=== PATIENT | female | born 1985 | race Caucasian/White ===

== ENCOUNTER 2024-06-15 10:35 | Outpatient (OUT) | payer OTHER, SELFPAY ==
[2024-06-15 11:17] LABS: Estimated Average Glucose 117 mg/dL; Glycohemoglobin A1C 5.7 % (4.5-6.2)
[2024-06-15 11:27] LABS: Basophils Percent Auto 0.3 % (0.2-2.0); Eosinophils Absolute Auto 0.4 10^3/uL (0.0-0.7); Eosinophils Percent Auto 4.4 % (0.9-7.0); Immature Granulocytes Abs Auto 0.03 10^3/uL (0.00-0.03); Immature Granulocytes Pct Auto 0.3 % (0.0-0.5); Lymphocytes Absolute Auto 1.9 10^3/uL (1.2-3.8); Lymphocytes Percent Auto 19.2 % (20.5-60.0); Mean Corpuscular HGB Conc 31.8 g/dL (29.9-35.2); Mean Corpuscular Hemoglobin 27.1 pg (26.7-34.0); Mean Corpuscular Volume 85.3 fL (81.0-99.0); Mean Platelet Volume 9.6 fL (9.5-13.5); Monocytes Absolute Auto 0.4 10^3/uL (0.3-0.8); Monocytes Percent Auto 4.1 % (1.7-12.0); Neutrophils Percent Auto 71.7 % (43.0-75.0); Platelet Count 442 10^3/uL (150-450); Red Blood Count 5.16 10^6/uL (4.20-5.40); Red Cell Distribution Width 13.9 % (11.0-15.0); White Blood Count 9.7 10^3/uL (4.0-11.0)
[2024-06-15 11:48] LABS: Erythrocyte Sedimentation Rate 75 mm/hr (<=20)
[2024-06-15 13:08] LABS: Alanine Aminotransferase 30 U/L (14-59); Albumin Globulin Ratio 0.9; Albumin Level 3.7 g/dL (3.4-5.0); Alkaline Phosphatase 75 U/L (46-116); Anion Gap 11.1; Aspartate Amino Transferase 20 U/L (15-37); BUN Creatinine Ratio 8.4; Bilirubin Direct 0.1 mg/dL (0.0-0.2); Bilirubin Total 0.5 mg/dL (0.2-1.0); C Reactive Protein 0.93 mg/dL (<=0.50); Calcium 8.9 mg/dL (8.5-10.1); Carbon Dioxide 28.9 mmol/L (21.0-32.0); Chloride 101 mmol/L (98-107); Chol HDL Ratio 4.6; Cholesterol 193 mg/dL (<=200); Estimated GFR (African America >60 (>=60); Estimated GFR (Non-African Ame >60 (>=60); Globulin 3.9 g/dL; Glucose 93 mg/dL (74-106); HDL Cholesterol 42 mg/dL (40-60); LDL Cholesterol Calculated 126.4 mg/dL; Sodium 137 mmol/L (136-145); Thyroid Stimulating Hormone 0.883 uIU/mL (0.358-3.740); Total Protein 7.6 g/dL (6.4-8.2); Triglycerides 123 mg/dL (<=150); VLDL CHOLESTEROL 24.6 mg/dL
[2024-06-16 06:10] LABS: Rheumatoid Factor (RF) 17.3 IU/mL (<14.0)
[2024-06-18 12:08] LABS: Antinuclear Antibodies, IFA Negative (.)
== END 2024-06-15 10:36 | disposition home or self-care (01) ==
PROVIDERS: PCP Family Medicine; Visit Provider Family Medicine
DX: Z00.00 Encounter for general adult medical examination without abnormal findings (principal); M25.50 Pain in unspecified joint
CPT/HCPCS: 36415; 80048; 80061; 80076; 83036; 84443; 85025; 85652; 86038; 86140; 86431

== ENCOUNTER 2024-08-10 09:09 | Outpatient (OUT) | payer OTHER, SELFPAY ==
--- NOTE | 2024-08-10 | PCN_ITS ---
CARDIAC STRESS TEST Requesting Physician: Gwendolyn Conrad M.D. Procedure Date: 08/10/2024 TREADMILL STRESS TEST INDICATION FOR THE PROCEDURE: Dyspnea on exertion. Patient?s resting heart 66 beats per minute, resting blood pressure 112/78 mm/Hg. Peak heart rate 171 beats per minute, which represents 95% of age predicted maximum heart rate; peak blood pressure 138/68 mm/Hg. Resting EKG shows normal sinus rhythm with first degree AV block, heart rate 69 beats per minute, otherwise normal EKG. Patient exercised according to standard Jovani protocol for a total of 3 minutes and 56 seconds, achieving max METS of 6.8. Exercise was terminated secondary to achievement of target heart rate and shortness of breath. Patient did not experience any chest, neck, jaw or arm discomfort throughout the test. EKG during exercise, at peak exercise, and during recovery phase did not show any T or ST changes or significant arrhythmias. CONCLUSIONS/COMMENTS: 1. Maximum stress test. 2. Reduced exercise tolerance. 3. Appropriate heart rate and blood pressure response to exercise. 4. This stress test is negative for exercise induced ischemic symptoms, EKG changes or arrhythmias. MTDD
--- OUTSIDE RECORDS SUMMARY | 2024-08-10 09:19 | XMS_ITS | CCD ---
Author Organization [facility] Care Team Providers Care Dry Plasterer Helper Name Role Phone Naa Em Unavailable Unavailable NADERER, DR KAI Obrien Primary Care Unavailable JACKELINE THOMAS Attending Unavailable JACKELINE THOMAS Consulting Unavailable JACKELINE THOMAS Admitting Unavailable DO Aamir Howe Attending Provider MD Kai Chavez Primary Care Provider KAI CHAVEZ Attending Unavailable NADERER, KAI Attending Unavailable NADERER, KAI Referring Unavailable NADERER, KAI Primary Care Unavailable NADERER, KAI Referring Unavailable NADERER, KAI Primary Care Unavailable NADERER, KAI Referring Unavailable NADERER, KAI Primary Care Unavailable NADERER, KAI Referring Unavailable NADERER, KAI Primary Care Unavailable NADERER, KAI Referring Unavailable NADERER, KAI Primary Care Unavailable NADERER, KAI Primary Care Unavailable WILD KILGORE Attending Unavailable YOUNG, JOSH Attending Unavailable HECTOR, JOSH Referring Unavailable NADERER, KAI Primary Care Unavailable REGINA ADAIR Attending Unavailable REGINA ADAIR Attending Unavailable Allergies Allergy Classification Reported Allergen(s) Allergy Type Date of Onset Reaction(s) Facility Levamisole (1 source) Levamisole Drug Allergy 07-16-2015 [facility] Repository (2 sources) acetaZOLAMIDE; Translations: [ACETAZOLAMIDE] Drug Allergy 09-27-2017 [facility] Repository (2 sources) Promethazine; Translations: [PROMETHAZINE] Drug Allergy 11-02-2016 [facility] Repository Problems Active Problems Problem Classification Problem Date Documented Date Episodic/Chronic Abdominal pain (1 source) Abdominal pain Onset: 07-02-2024 Episodic Esophageal disorders (1 source) Gastro-esophageal reflux disease without esophagitis; Translations: [Gastro-esophageal reflux disease without esophagitis] Onset: 07-02-2024 Chronic Heart valve disorders (1 source) Cardiac murmur, unspecified; Translations: [Cardiac murmur, unspecified] Onset: 04-04-2024 Episodic Nonspecific chest pain (4 sources) Other chest pain; Translations: [Chest pain, unspecified] Onset: 06-15-2024 Episodic Other circulatory disease (2 sources) Postural orthostatic tachycardia syndrome ; Translations: [Postural orthostatic tachycardia syndrome (POTS)] Onset: 08-06-2024 Episodic Other lower respiratory disease (6 sources) Other forms of dyspnea; Translations: [OTHER FORMS OF DYSPNEA] Onset: 04-27-2021 Episodic Other nervous system disorders (1 source) Other chronic pain; Translations: [Other chronic pain] Onset: 03-23-2024 Chronic Spondylosis; intervertebral disc disorders; other back problems (1 source) Spondylosis without myelopathy or radiculopathy, lumbosacral region; Translations: [Spondylosis without myelopathy or radiculopathy, lumbosacral region] Onset: 04-18-2017 Chronic Unclassified (1 source) [place] ACHE Onset: 07-02-2024 Unclassified (2 sources) Supraventricular tachycardia, unspecified; Translations: [Supraventricular tachycardia, unspecified] Onset: 03-23-2024 Past or Other Problems Problem Classification Problem Date Documented Date Episodic/Chronic Cardiac dysrhythmias (1 source) Palpitations; Translations: [Palpitations] Onset: 03-23-2024 Episodic Other injuries and conditions due to external causes (1 source) History of falling; Translations: [History of falling] Onset: 03-01-2024 Episodic Other non-traumatic joint disorders (1 source) Pain in right knee; Translations: [Pain in right knee] Onset: 03-23-2024 Episodic Other non-traumatic joint disorders (1 source) Pain in unspecified knee; Translations: [Pain in unspecified knee] Onset: 03-01-2024 Episodic Unclassified (1 source) Supraventricular tachycardia, unspecified; Translations: [Supraventricular tachycardia, unspecified] Onset: 08-06-2024 Results Test Name Value Interpretation Reference Range Facility Office Visiton 08-06-2024 Follow-up visit [id number] Ida Argueta 1985 F Date Provider Department Center 08/06/2024 3848REGINA ADAIR [facility] Family History Problem Relation Age of Onset Supraventricular tachycardia Other Family Status - Relation Status Age at Other Level of Service:18475 [place] OFFICE/OUTPATIENT ESTABLISHED LOW MDM 20 MIN Normal [facility] CBC AND AUTO DIFFon 07-02-20 24 ABSOLUTE BASOPHIL 0.1 X10E9/L Normal 0.0-0.2 [facility] Comment on above: Performed By: #### C NARDA JULES, 3040-01, #### [facility] ([id number]) [address] [place] [address] 77321 ABSOLUTE NEUTROPHIL 5.7 X10E9/L Normal 1.5-6.6 [facility] Comment on above: Performed By: #### C JORGE A CMP, 3040-01, #### [facility] ([id number]) [address] [place] [address] 70957 Basophils/100 WBC (Bld) 0.6 % Normal [facility] Comment on above: Performed By: #### Rojelio JULES CMP, 3040-01, 72999-2 #### [facility] ([id number]) [address] [place] [address] 99667 Eosinophils (Bld) [#/Vol] 0.4 10*3/uL Normal 0.0-0.4 [facility] Comment on above: Performed By: #### Rojelio JULES CMP, 3040-01, #### [facility] ([id number]) [address] [place] [address] 89530 Eosinophils/100 WBC (Bld) 4.6 % Normal [facility] Comment on above: Performed By: #### Rojelio JULES CMP, 3040-01, #### [facility] ([id number]) [address] [place] [address] 81089 Erythrocyte distribution width (RBC) [Ratio] 14.3 % Normal 11.5-15.0 [facility] Comment on above: Performed By: #### C NARDA JULES, 3040-01, #### [facility] ([id number]) [address] [place] [address] 03937 Hematocrit (Bld) [Volume fraction] 39.8 % Normal 35-47 [facility] Comment on above: Performed By: #### Rojelio JULES [facility], 3040-01, #### [facility] ([id number]) [address] [place] [address] 14586 Hemoglobin (Bld) [Mass/Vol] 13.4 g/dL Normal 11.7-15.5 [facility] Comment on above: Performed By: #### Rojelio JULES CMP, 3040-01, #### [facility] ([id number]) [address] [place] [address] 96564 Lymphocytes (Bld) [#/Vol] 2.2 10*3/uL Normal 1.0-3.5 [facility] Comment on above: Performed By: #### Rojelio JULES [facility], 3040-01, #### [facility] ([id number]) [address] [place] [address] 15811 Lymphocytes/100 WBC (Bld) 25.2 % Normal [facility] Comment on above: Performed By: #### C NARDA JULES, 3040-01, #### [facility] ([id number]) [address] [place] [address] 33055 MCH (RBC) [Entitic mass] 27.3 pg Normal 27-34 [facility] Comment on above: Performed By: #### Rojelio JULES CMP, #### [facility] ([id number]) [address] [place] [address] 86328 MCHC (RBC) [Mass/Vol] 33.6 g/dL Normal 32-36 [facility] Comment on above: Performed By: #### Rojelio JULES CMP, 3040-01, #### [facility] ([id number]) [address] [place] [address] 41123 MCV (RBC) [Entitic vol] 81 fL Normal 80-100 [facility] Comment on above: Performed By: #### Rojelio JULES CMP, 3040-01, #### [facility] ([id number]) [address] [place] [address] 08628 Monocytes (Bld) [#/Vol] 0.5 10*3/uL Normal 0-0.9 [facility] Comment on above: Performed By: #### Rojelio JULES CMP, 3040-01, #### [facility] ([id number]) [address] [place] [address] 63526 Monocytes/100 WBC (Bld) 6.1 % Normal [facility] Comment on above: Performed By: #### Rojelio JULES CMP, 3040-01, #### [facility] ([id number]) [address] [place] [address] 33288 Neutrophils/100 WBC (Bld) 63.5 % Normal [facility] Comment on above: Performed By: #### Rojelio JULES CMP, 3040-01, #### [facility] ([id number]) [address] [place] [address] [place] [address] Platelet mean volume (Bld) [Entitic vol] 7.8 fL Normal 7-12 [facility] Comment on above: Performed By: #### Rojelio JULES CMP, 3040-01, #### [facility] ([id number]) [address] [place] [address] 68274 Platelets (Bld) [#/Vol] 506 10*3/uL High 150-450 [facility] Comment on above: Performed By: #### C BCA, CMP, 3039-3, 21274-6 #### [facility] ([id number]) [address] [place] [address] 10658 RBC COUNT 4.88 X10E12/L Normal 3.80-5.20 [facility] Comment on above: Performed By: #### C BCA, CMP, 3040-01, #### [facility] ([id number]) [address] [place] [address] 81934 WBC (Bld) [#/Vol] 8.9 10*3/uL Normal 4.0-11.0 [facility] Comment on above: Performed By: #### C BCA, CMP, 3040-01, #### [facility] ([id number]) [address] [place] [address] 46448 COMPREHENSIVE METABOLIC PANE [facility] 07-02-2024 Albumin [Mass/Vol] 4.1 g/dL Normal 3.2-5.3 [facility] Comment on above: Performed By: #### C BCA, CMP, 3040-01, #### [facility] ([id number]) [address] [place] [address] 87206 ALP [Catalytic activity/Vol] 71 U/L Normal 39-130 [facility] Comment on above: Performed By: #### C BCA, CMP, 3040-01, 46263-5 #### [facility] ([id number]) [address] [place] [address] 88523 ALT [Catalytic activity/Vol] 26 U/L Normal 0-31 [facility] Comment on above: Performed By: #### C BCA, CMP, 3, #### [facility] ([id number]) [address] [place] [address] 73237 Anion gap [Moles/Vol] 7 mmol/L Normal 5-15 [facility] Comment on above: Performed By: #### C BCA, CMP, 3040-01, #### [facility] ([id number]) [address] [place] [address] 19212 AST [Catalytic activity/Vol] 19 U/L Normal 0-41 [facility] Comment on above: Performed By: #### C BCA, CMP, 3040-01, #### [facility] ([id number]) [address] [place] [address] 53471 Bilirubin [Mass/Vol] 0.6 mg/dL Normal 0.3-1.2 [facility] Comment on above: Performed By: #### C BCA, CMP, 3040-01, #### [facility] ([id number]) [address] [place] [address] 57035 Calcium [Mass/Vol] 8.9 mg/dL Normal 8.5-10.5 [facility] Comment on above: Performed By: #### C BCA, CMP, 3040-01, #### [facility] ([id number]) [address] [place] [address] 95009 Chloride [Moles/Vol] 102 mmol/L Normal 98-109 [facility] Comment on above: Performed By: #### C BCA, CMP, 3040-01, 14972-6 #### [facility] ([id number]) [address] [place] [address] 93996 CO2 [Moles/Vol] 28 mmol/L Normal 22-32 [facility] Comment on above: Performed By: #### C BCA, CMP, 3040-01, #### [facility] ([id number]) [address] [place] [address] 36654 Creatinine [Mass/Vol] 0.86 mg/dL Normal 0.40-1.00 [facility] Comment on above: Result Comment: METH OD TRACEABLE TO IDMS STANDARD Performed By: #### C NARDA JULES, 3040-01, 01225-0 #### [facility] ([id number]) [address] [place] [address] 57083 GFR/1.73 sq M.predicted among non-blacks MDRD (S/P/Bld) [Vol rate/Area] 88 mL/min/{1.73_m2} Normal >59 [facility] Comment on above: Result Comment: Reported eGFR is based on the CKD-EPI 2020 equation that does not use a race coefficient. Performed By: #### C NARDA JULES, 3040-01, #### [facility] ([id number]) [address] [place] [address] 37847 Glucose [Mass/Vol] 88 mg/dL Normal 65-99 [facility] Comment on above: Performed By: #### C NARDA JULES, 3040-01, #### [facility] ([id number]) [address] [place] [address] 21925 Potassium [Moles/Vol] 3.9 mmol/L Normal 3.5-5.0 [facility] Comment on above: Performed By: #### C NARDA JULES, 3040-01, #### [facility] ([id number]) [address] [place] [address] 31552 Protein [Mass/Vol] 8.1 g/dL High 6.0-8.0 [facility] Comment on above: Performed By: #### C NARDA JULES, 3040-01, 75917-8 #### [facility] ([id number]) [address] [place] [address] 47648 Sodium [Moles/Vol] 137 mmol/L Normal 134-146 [facility] Comment on above: Performed By: #### C BCA, CMP, 3040-3, 13363-4 #### [facility] ([id number]) [address] [place] [address] Urea nitrogen [Mass/Vol] 9 mg/dL Normal 5-23 [facility] Comment on above: Performed By: #### C BCA, CMP, 3040-3, 47074-8 #### [facility] ([id number]) [address] [place] [address] ABDOMEN AND PELVIS W CONT on 07-02-2024 CT ABDOMEN AND PELVIS W CONT CT ABDOMEN AND PELVIS W CONT CLINICAL INFORMATION: Abdominal pain, acute, nonlocalized TECHNIQUE: CT ABDOMEN AND PELVIS W CONT CT images of the abdomen and pelvis are obtained and compared to prior exam dated 07/24/2023. Limited images of the lung bases are clear. No focal hepatic or splenic abnormality seen. Patient status post cholecystectomy. There is no free intraperitoneal fluid. No colonic wall thickening or pericolonic inflammatory stranding. The appendix is normal in caliber. Small bowel nondistended. Kidneys enhance homogeneously without hydronephrosis. Adrenal symmetric. No peripancreatic infiltrative change appreciated. Prominent node noted just caudal to the pancreatic head, unchanged in comparison the prior exam. Portal and mesenteric vessels appear to enhance normally. IMPRESSION: No acute findings. All CT scans at this facility use dose modulation, iterative reconstruction, and/or weight based dosing when appropriate to reduce radiation dose to as low as reasonably achievable. Finalized by Riccardo Seals MD on 07/02/2024 4:56 PM Normal [facility] Glucose Glucometer (BldC) [M ass/Vol]on 07-02-2024 Glucose [Mass/Vol] 82 mg/dL Normal 65-99 [facility] HCG ( test) Ql (U)o n 07-02-2024 Beta HCG ( test) Ql (U) Negative Normal NEG [facility] Comment on above: Performed By: #### 2 106-3 ####[facility] ([id number])[address] [place] [address] 05985 LIPASEon 07-02-2024 Lipase [Catalytic activity/Vol] 27 U/L Normal 17-40 [facility] Comment on above: Performed By: #### C JORGE A, CMP, 3040-3, 09732-7 #### [facility] ([id number]) [address] [place] [address] 70876 Lactate (P kavitha) [Moles/Vol]o n 07-02-2024 LACTATE W/REFLEX 1.0 mmol/L Normal 0.4-2.0 [facility] Comment on above: Result Comment: Result did not trigger repeat Lactate, re-order if needed. Performed By: #### 3 2133-1 #### [facility] ([id number]) [address] [place] [address] 39693 MAGNESIUMon 07-02-2024 Magnesium [Mass/Vol] 2.2 mg/dL Normal 1.8-2.6 [facility] Comment on above: Performed By: #### C JORGE A, [facility], 3040-3, 78272-8 #### [facility] ([id number]) [address] [place] [address] 52872 Office Visiton 06-15-2024 Follow-up visit [id number] Ida Argueta 1985 F Date Provider Department Center 06/15/2024 3848-REGINA ADAIR [facility] Family History Problem Relation Age of Onset Supraventricular tachycardia Other Family Status - Relation Status Age at Other Level of Service:94389 [place] OFFICE/OUTPATIENT ESTABLISHED MOD MDM 30 MIN Normal [facility] XR KNEE RT 1 OR 2 VWSon 05- XR KNEE RT 1 OR 2 VWS XR KNEE RT 1 OR 2 VWS HISTORY: A 38-year-old female with the history of the lower back pain and pain in the right lower extremity. There is a right knee pain. TECHNIQUE: Right knee: 2 views COMPARISON: No relevant prior studies are available for comparison. FINDINGS: Joint spaces are intact. Articular surfaces are smooth. Patellofemoral joint is intact. There is no evidence of joint effusion or calcified loose body. No fracture or acute bony pathology is identified. IMPRESSION: * Normal plain film radiographs of the right knee. Finalized by Varinder Smiley MD on 03/23/2024 10:20 AM Normal [facility] XR SPINE LUMBAR 2 OR 3 VWSon 03-23-2024 XR SPINE LUMBAR 2 OR 3 VWS XR SPINE LUMBAR 2 OR 3 VWS HISTORY: A 38-year-old female with the history of the right-sided low back pain and pain radiating down into the right lower extremity. Lumbosacral spondylosis without myelopathy. TECHNIQUE: Lumbar spine: 3 views COMPARISON: Comparison is made with the lumbar spine radiographs of 12/29/2015. FINDINGS: Vertebral heights and intervertebral disc spaces are intact. There is no evidence of spondylolysis or spondylolisthesis. Pedicles are intact. Facet joints are intact. Both sacroiliac joints are unremarkable. There is a small calcific density in the left mid abdomen at the level of the transverse process of L4. This could be a phlebolith or small calculus in the left ureter. IMPRESSION: * Unremarkable plain film radiographs of the lumbar spine. * A small calcific density adjacent to the left transverse process of L4 which could be a small left ureteric calculus. A clinical correlation is suggested. Finalized by Varinder Smiley MD on 03/23/2024 10:26 AM Normal [facility] XR KNEE LT 1 OR 2 VWSon 02-06 XR KNEE LT 1 OR 2 VWS XR KNEE LT 1 OR 2 VWS 2 views of the left knee dated 03/01/2024 at 8:09 AM INDICATION: Fall, patellar tenderness. FINDINGS: No comparisons available. Normal alignment without acute fractures or subluxations. Degenerative changes with tiny osteophytes. No effusion. IMPRESSION: 1. Normal alignment without acute fractures or subluxations seen. 2. Tiny osteophytes. 3. If symptoms persist consider MRI. Finalized by Najma Vides MD on 03/01/2024 8:18 AM Normal [facility] MR head/brain wo/w conon MR head/brain wo/w [facility] [place] [address] MRI Report Signed Patient: Oxana Argueta MR#: [id number] 00 : 1985 Acct:[id number] Age/Sex: 36 / F ADM Date: 01/27/22 Loc: MR Room: Type: [facility] CL Attending Dr: Aamir Howe DO Ordering Provider: Jose Daniel Howe DO Date of Service: 01/27/22 MR/MR head/brain wo/w con: G93.2 Copies to: Jose Daniel Howe DO MR head/brain wo/w con 01/27/2022 3:31 PM SIGN AND SYMPTOMS: Intracranial hypertension, headaches, dizziness PROTOCOL: Multiplanar multisequence MR images of the brain were obtained with and without IV contrast CONTRAST: 20 mL of intravenous ProHance COMPARISON: 10/05/2017 FINDINGS: Extra axial spaces: Age appropriate. Hemorrhage: None. Ventricular system: Within normal limits. Basal cisterns: Within normal limits and not effaced. Cerebral parenchyma: Normal in signal. There is no abnormal postcontrast enhancement. Midline shift: None.. Cerebellum: Within normal limits. Brainstem: Within normal limits. OTHER: Calvarium: Normal marrow signal. Vascular system: Satisfactory flow voids within the anterior and posterior circulation. Visualized Paranasal sinuses: There is opacification of the sphenoid sinuses which is worse when compared prior exam. There is partial opacification of the ethmoid air cells with mucosal thickening in the maxillary sinuses, again worse when compared to the prior exam. Visualized Orbits: Within normal limits. Visualized upper cervical spine: Within normal limits. Sella and skull base: The dome of the pituitary is depressed within the sella. MR/MR head/brain wo/w con IMPRESSION: No acute intracranial pathology or abnormal postcontrast enhancement. There is a concave border of the dome of the pituitary which is atypical for the patient's age but is unchanged. No additional findings to suggest intracranial hypertension are noted. Extensive mucosal thickening and partial opacification of the paranasal sinuses is noted, as above. This is worse when compared to the prior study. Impression dictated by: Ed Ruiz M.D.01/28/2022 10:13 AM Dictation Location: [place] [address] Transcribed By: RAQUEL 01/28/22 1013 Dictated By: Ed Ruiz II, MD 01/28/22 1002 Signed By: 01/28/22 1013 [facility] ECHOCARDIO M/2D COMPLETEon 0 04-27-2021 ECHOCARDIO M/2D COMPLETE Patient: OXANA ARGUETA Exam Date: 04/27/2021 : 1985 Gender:F Ordering : JACKELINE THOMAS Admission #: [id number] Family : Order #: [id number] CLICK HERE TO VIEW EXAM ECHOCARDIOGRAM REPORT PROCEDURE: CARDIO PULMONARY ECHOCARDIO M/2D COMP INDICATIONS: Dyspnea on exertion COMPARISON: None. DESCRIPTION: COMPLETE ECHOCARDIOGRAM Real-time transthoracic echocardiography with 2D, M-mode, spectral and color flow Doppler performed. QUALITY: Technical quality was good. LEFT VENTRICLE: Normal chamber size. Normal left ventricular wall thickness. LV EF: Normal left ventricular ejection fraction, (>55%). DIASTOLIC: Normal diastolic function. ATRIAL SEPTUM: Inadequately seen. LEFT ATRIUM: Normal chamber size. RIGHT ATRIUM: Mild dilatation. RIGHT VENTRICLE: Normal chamber size. Normal right venticular systolic function. TRICUSPID VALVE: Normal mobility and thickness. No stenosis with mild regurgitation. No evidence of pulmonary hypertension. MITRAL VALVE: Normal mobility and thickness. No mitral valve prolapse. No evidence of mitral valve stenosis. Trace mitral regurgitation. AORTIC VALVE: Normal trileaflet appearance. No visible sclerosis. Normal leaflet mobility. No evidence of aortic valve stenosis. No aortic regurgitation. AORTIC ROOT: Normal diameter and appearance. PULMONIC VALVE: Normal thickness and mobility. No stenosis. Trace regurgitation. PERICARDIUM: No evidence of pericardial effusion. IVC: Collapses with inspirations. CONCLUSION: Global left ventricular systolic function is normal; visually estimated ejection fraction 55 to 60%. No significant wall motion abnormalities. Right ventricle is normal in size and systolic function. Right atrium appears enlarged. Mild tricuspid regurgitation. Adult Echocardiography Procedure Report Left Ventricle LVEDD (3.7 - 5.6 cm): 5.08 cm LVESD (2.2 - 4.0 cm): 3.13 cm LVIVS thickness (0.6 - 1.2 cm): 9.04 mm LVPW thickness (0.5 - 1.0 cm): 9.03 mm e': 12.20 cm/s E - e': 6.80 LVOT Area (cm2): 3.46 cm2 Peak Velocity (LVOT): 101.00 cm/s, 100.00 cm/s LVOT Diameter 2.10 cm Left Ventricular Ejection Fraction: 68.50 % Left Ventricular Ejection Fraction (A2C): 64 % Left Ventricular Ejection Fraction (A4C): 59 % Left Atrium LA Volume Index (2D A2C): 24 ml/m2 Left Atrium Systolic Dimension: 3.60 cm Left Atrium Systolic Area(A2C): 18.80 cm2 Left Atrium Systolic Area(A4C): 23.00 cm2 Left Atrium Systolic Volume(A2C): 74237 mm3 Left Atrium Systolic Volume(A4C): 07336 mm3 Mitral Valve MV E to A Ratio: 1.10 Mitral Valve A-Wave Peak Velocity: 64.20 cm/s Mitral Valve E-Wave Peak Velocity: 76.00 cm/s Deceleration [place]: 6250 mm/s2 Mitral Valve A-Wave Peak Velocity: 72.10 cm/s Mitral Valve E-Wave Peak Velocity: 82.40 cm/s Right Ventricle RV Internal Diastolic Dimension: 3.28 cm Aorta AO Root Diam: 2.60 cm Aortic Valve Peak Velocity (Antegrade Flow): 122.00 cm/s AoV Area (Peak Eriberto): 2.68 cm2 Peak Velocity(Antegrade Flow): 133.00 cm/s Peak Gradient(Antegrade Flow): 7 mm[Hg] Tricuspid Valve Peak Velocity (Regurgitant Flow): 201.00 cm/s Pulmonic Valve Peak Velocity: 99.10 cm/s Peak Gradient: 4 mm[Hg] Right Atrium Dictated by: Scott Rodarte M.D. on 04/28/2021 at 11:26 Approved by: Scott Rodarte M.D. on 04/28/2021 at 11:29 Normal [facility] MRI CARDIAC WITH AND WITHOUT CONTRASTon 05-25-2019 MRI CARDIAC WITH AND WITHOUT CONTRAST [facility] Department of Radiology [address] [place] [id number] Patient Name: OXANA ARGUETA : 1985 Sex: F Age: Race: White Pt. Location: 30 Patient Status: D Ordered Date: 04/27/2019 4:10:00 PM Completed Date: 05/25/2019 12:32 PM Requesting Provider: JOCELYNN MENDEZ Attending Provider: JOCELYNN MENDEZ Report Copy To: JACOB FORMAN Signs & Symptoms: Z86.711 Personal history of pulmonary embolism I10 History: Renetta, No FB per patient. deer auth # [id number] 05/03/19-06/02/19 [id number] *er Comments: , , , Ordering Provider - JOCELYNN MENDEZ MD , Exam: MRI CARDIAC WITH AND WITHOUT CONTRAST MRI CARDIAC WITH AND WITHOUT CONTRAST 05/25/2019 12:32 PM EDT SIGN AND SYMPTOMS: Z86.711 Personal history of pulmonary embolism I10 TECHNOLOGIST COMMENTS: patient complains of episodes of SOB and dizziness. dyspnea on exertion atrioventricular block, murmur, superventricular tachycardia QUESTIONS PER RADIOLOGIST: , , , Ordering Provider - JOCELYNN MENDEZ MD , PROTOCOL: Additional images were performed in the following sequences: CONTRAST: Contrast: DOTAREM, 20 milliliter, Intravenous COMPARISON: None. FINDINGS: Left Ventricular Measurements Ejection Fraction 55.4% Stroke Volume 62.8 mL End Diastolic Volume 113.4 mL (normal: male = 77-195 ml; female = 52-141 ml) End Systolic Volume 50.6 mL (normal: male = 19-72 ml; female = 13-51 ml) VALVE DISEASE Quantitative valve analysis not performed. There is no evidence of regurgitant flow or stenotic turbulence across the aortic valve. There is some mild dephasing across the mitral valve which could represent very mild mitral regurgitation. Ascending aorta 32 mm LEFT VENTRICLE REGIONAL WALL MOTION No focal wall motion abnormality. LEFT VENTRICLE MYOCARDIAL ENHANCEMENT No abnormal enhancement after contrast ministration Cardiac morphology: Atrial and ventricular chambers appear normal in size with normal thickness of the myocardium. Heart is normal size. No pericardial effusion. Non-cardiac findings: Chest wall and upper abdomen unremarkable. IMPRESSION: 1. Left ventricular ejection fraction is low normal at 55.4%. No focal wall motion abnormality 2. No abnormal delayed myocardial enhancement in the left ventricle. The anterior free wall of the right ventricle is well visualized and no abnormal enhancement is seen. Also, there is no fatty infiltration of the right ventricular free wall on black blood T1-weighted images. 3. Very mild dephasing of flow consistent with turbulence is seen across the mitral valve which could represent very mild mitral regurgitation Electronically signed by:Jasvir Topete. Transcribed by: [email or web address], User Resident: Electronically Signed by: JASVIR TOPETE @ 05/28/2019 08:55 AM Normal [facility] Comment on above: Order Comment: , , = ========= , Ordering Provider - JOCELYNN MENDEZ MD , CSF Diffon 02-03-2018 NEUTROPHILS.SEGMEN SANTIAGO:NCNC:PT:CSF:QN : 6 % Normal 0-6 [facility] Comment on above: Order Comment: Tube# 2 Result Comment: Tube #2 Performed By: #### 2 [id number] ####[facility] [address] [place] [address] EOSINOPHILS:NCNC:P T:CSF:QN:MANUAL COUNT 1 Invalid Interpretation Code [facility] Comment on above: Order Comment: Tube #3 Performed By: #### 2 [id number] ####[facility] [address] [place] [address] LYMPHOCYTES:NUM:PT :CSF:QN:MANUAL COUNT 88 High 40-80 [facility] Comment on above: Order Comment: Tube #3 Result Comment: Vida aguiar:Randy Samuels (2004). Fundamentals of Urine and Body Fluid Analysis. [place]: [place]. Performed By: #### 2 [id number] ####[facility] [address] [place] [address] MONOCYTES:NCNC:PT: CSF:QN:MANUAL COUNT 1 % Low 15-45 [facility] Comment on above: Order Comment: Tube #3 Performed By: #### 2 [id number] ####[place] [id number] NEUTROPHILS.SEGMEN SANTIAGO:NCNC:PT:CSF:QN : 10 % High 0-6 [facility] Comment on above: Order Comment: Tube #3 Result Comment: Tube #3 Performed By: #### 2 [id number] ####[place] [id number] LYMPHOCYTES:NUM:PT :CSF:QN:MANUAL COUNT 94 High 40-80 [facility] Comment on above: Order Comment: Tube# 2 Result Comment: Refe rence:Randy Samuels (2004). Fundamentals of Urine and Body Fluid Analysis. [place]: [place]. Performed By: #### 2 [id number] ####[place] [id number] Encounters Encounter Date Encounter Type Care Provider Facility Start: 08-06-2024 End: 08-06-2024 ambulatory [facility] Start: 07-02-2024 End: 07-03-2024 Emergency department patient visit JOSH [facility] Start: 06-15-2024 End: 06-15-2024 ambulatory [facility] Start: 06-12-2024 End: 06-12-2024 ambulatory KAI CHAVEZ Not Available Start: 04-04-2024 End: 04-04-2024 ambulatory KAI CHAVEZ [facility] Start: 03-23-2024 End: 03-23-2024 ambulatory KIA CHAVEZ [facility] Start: 03-15-2024 End: 03-15-2024 ambulatory KAI CHAVEZ Not Available Start: 03-01-2024 End: 03-01-2024 ambulatory KAI CHAVEZ [facility] Start: 01-27-2022 End: 01-27-2022 Patient encounter procedure DO Aamir Carley Work Phone: [facility] [place] Start: 04-27-2021 End: 04-28-[address] KAI CHAVEZ Facility: Start: 02-03-2018 End: 02-04-2018 Ambulatory Naaayah Em Facility:[facility] Plan of Treatment Date Care Activity Detail Author Start: 01-27-2022 MRI of head MR head/brain wo/w con [facility] Payers Date Payer Category Payer Unknown [id number] 2.16.84 [id number] 1985 Unknown [id number] 2.16.84 [id number] 1985 Unknown [id number] 2.16.84 [id number] 1984 Unknown [id number] 2.16.8 [id number] 1984 Unknown [id number] 2.16.8 [id number] 1984 Unknown [id number] 2.16.8 [id number] 1984 Unknown [id number] 2.16.8 [id number] 1984 Unknown [id number] 2.16.8 [id number] 1984 Unknown [id number] 2.16.8 [id number] 1985 Unknown [id number] 2.16.8 [id number] 1959 Unknown [id number] Self-pay Self Pay [id number] Social History Date Type Detail Facility Tobacco smoking stat [facility] Unknown if ever smoked [facility] Work Phone: Start: 1985 Sex Assigned At Female F [facility] Progress note 08-06-2024 Note Date & Type Note Facility 08-06-2024 Note Cardiology Follow Up Progress Note Chief Complaint: Follow up HPI: Oxana Argueta is a 39 y.o. female who has a past medical history of Abnormal ECG, Arrhythmia, Heart murmur, POTS (postural orthostatic tachycardia syndrome), and Pulmonary embolism (CMS/HCC). That presents to Cardiology clinic for follow up. During her last visit, patient complained of chest pain, dyspnea on exertion, and palpitations. As such, 30-day event monitor and stress test were ordered. Unfortunately, stress test was denied by her insurance. Through the event monitor demonstrated 1 episode of SVT that lasted for approximately 1 hour. Otherwise, there were no sustained arrhythmias that correlated with her symptoms. Today, patient denies any new complaints or concerns. She continues to have these episodes of chest pain. She denies any shortness of breath. She denies any lower extremity edema, orthopnea, or paroxysmal nocturnal dyspnea. No near syncope or syncope. Cardiology ROS: 10 point ROS is performed and is negative unless otherwise specified in HPI. Medications Current Outpatient Medications on File Prior to Visit Medication Sig Dispense Refill diphenoxylate-atropine (Lomotil) 2.5-0.025 mg tablet Take 1 tablet by mouth if needed in the morning, at noon, in the evening, and at bedtime for diarrhea. famotidine (Pepcid) 20 mg tablet Take 20 mg by mouth twice a day. furosemide (Lasix) 20 mg tablet Take 10 mg by mouth in the morning. metoprolol tartrate (Lopressor) 50 mg tablet Take 1 tablet by mouth in the morning and at bedtime. naproxen (EC Naprosyn) 500 mg EC tablet Take 500 mg by mouth if needed in the morning and at bedtime. omeprazole (PriLOSEC) [address] capsule Take 40 mg by mouth if needed. PARoxetine (Paxil) 10 mg tablet Take 1 tablet by mouth in the morning. SUMAtriptan (Imitrex) 100 mg tablet Take 100 mg by mouth 1 (one) time if needed. tiZANidine (Zanaflex) 4 mg tablet Take 4 mg by mouth if needed in the morning, at noon, and at bedtime. topiramate 50 mg tablet Take 1 tablet twice a day by oral route for 30 days. No current facility-administered medications on file prior to visit. Allergies Acetazolamide and Promethazine Physical Exam VITAL SIGNS: BP 120/82 Pulse 73 Ht 1.626 m (5' 4 ) Wt 109 kg (241 lb) SpO2 96% BMI 41.37 kg/m??? Constitutional: Well developed, Well nourished, No acute distress, Non-toxic appearance. HENT: Normocephalic, Atraumatic, Bilateral external ears have normal appearance, Nose appears normal, nares are patent. Eyes: PERRLA, EOMI, Conjunctiva normal, No discharge. Neck: Normal range of motion, No tenderness, Supple, No stridor. No cervical lymphadenopathy noted. Cardiovascular: Normal heart rate, Normal rhythm, No murmurs, No rubs, No gallops. Thorax & Lungs: Normal breath sounds, No respiratory distress, No wheezing, No chest tenderness to palpation. Abdomen: Bowel sounds normal, Soft, Nontender, No masses, No pulsatile masses. Skin: Warm, Dry, No erythema, No rash. Back: No tenderness, No CVA tenderness. Extremities: Intact distal pulses, No edema, No tenderness, No cyanosis, No clubbing. Musculoskeletal: Grossly normal strength in extremities Neurologic: Alert & oriented x 3, no gross focal neurological deficits Psychiatric: Affect normal, Judgment normal, Mood normal. EKG results: No results found for this or any previous visit (from the past 4464 hour(s)). Echo results: No echocardiogram results found for the past 12 months Radiology: MR cardiac morphology and function w and wo IV contrast Narrative: [facility] Department of Radiology [address] [place] [address] Patient Name: OXANA ARGUETA : 1985 Sex: F Age: Race: White^White Pt. Location: 30 Patient Status: D Ordered Date: 04/27/2019 4:10:00 PM Completed Date: 05/25/2019 12:32 PM Requesting Provider: JOCELYNN MENDEZ Attending Provider: JOCELYNN MENDEZ Report Copy To: JACOB FORMAN Signs & Symptoms: Z86.711 Personal history of pulmonary embolism I10 History: [place], No FB per patient. deer auth # [id number] 05/03/19-06/02/19 [id number] *er Comments: , , , Ordering Provider - JOCELYNN MENDEZ MD , Exam: MRI CARDIAC WITH AND WITHOUT CONTRAST MRI CARDIAC WITH AND WITHOUT CONTRAST 05/25/2019 12:32 PM EDT SIGN AND SYMPTOMS: Z86.711 Personal history of pulmonary embolism I10 TECHNOLOGIST COMMENTS: patient complains of episodes of SOB and dizziness. dyspnea on exertion atrioventricular block, murmur, superventricular tachycardia QUESTIONS PER RADIOLOGIST: , , , Ordering Provider - JOCELYNN MENDEZ MD , PROTOCOL: (more content not included)... [facility] Progress note 06-15-2024 Note Date & Type Note Facility 06-15-2024 Note Cardiology Follow Up Progress Note Chief Complaint: Follow up HPI: Oxana Argueta is a 38 y.o. female who has a past medical history of Abnormal ECG, Arrhythmia, Heart murmur, POTS (postural orthostatic tachycardia syndrome), and Pulmonary embolism (CMS/HCC). That presents to Cardiology clinic for follow up. She was last seen here 2.5 years ago for chest pain, hx of PE, and SVT. She recently had echo and Holter monitor performed in March 2024 at [facility], which were were ordered for SOB w/wo exertion, racing heart beats, and left-sided chest pain. Patient continues to complain of dyspnea on exertion, in addition also left-sided chest pain. Chest pain is atypical in nature. Can occur both at rest and with exertion, and has not necessarily worsened with exertion. Patient has occasional lower extremity edema. She denies any orthopnea or paroxysmal nocturnal dyspnea. No near-syncope or syncope.Echocardiogram recently performed demonstrates diastolic dysfunction, in addition to mildly increased RV size, but no other significant abnormalities. Cardiology ROS: 10 point ROS is performed and is negative unless otherwise specified in HPI. Medications Current Outpatient Medications on File Prior to Visit Medication Sig Dispense Refill diphenoxylate-atropine (Lomotil) 2.5-0.025 mg tablet Take 1 tablet by mouth if needed in the morning, at noon, in the evening, and at bedtime for diarrhea. furosemide (Lasix) 20 mg tablet Take 10 mg by mouth in the morning. metoprolol tartrate (Lopressor) 50 mg tablet Take 1 tablet by mouth in the morning and at bedtime. naproxen (EC Naprosyn) 500 mg EC tablet Take 500 mg by mouth if needed in the morning and at bedtime. omeprazole (PriLOSEC) [address] capsule Take 40 mg by mouth if needed. PARoxetine (Paxil) 10 mg tablet Take 1 tablet by mouth in the morning. SUMAtriptan (Imitrex) 100 mg tablet Take 100 mg by mouth 1 (one) time if needed. tiZANidine (Zanaflex) 4 mg tablet Take 4 mg by mouth if needed in the morning, at noon, and at bedtime. topiramate 50 mg tablet Take 1 tablet twice a day by oral route for 30 days. No current facility-administered medications on file prior to visit. Allergies Promethazine Physical Exam VITAL SIGNS: BP 118/82 (BP Location: Left arm, Patient Position: Sitting) Pulse 71 Ht 1.626 m (5' 4 ) Wt 116 kg (255 lb) SpO2 98% BMI 43.77 kg/m??? Constitutional: Well developed, Well nourished, No acute distress, Non-toxic appearance. HENT: Normocephalic, Atraumatic, Bilateral external ears have normal appearance, Nose appears normal, nares are patent. Eyes: PERRLA, EOMI, Conjunctiva normal, No discharge. Neck: Normal range of motion, No tenderness, Supple, No stridor. No cervical lymphadenopathy noted. Cardiovascular: Normal heart rate, Normal rhythm, No murmurs, No rubs, No gallops. Thorax & Lungs: Normal breath sounds, No respiratory distress, No wheezing, No chest tenderness to palpation. Abdomen: Bowel sounds normal, Soft, Nontender, No masses, No pulsatile masses. Skin: Warm, Dry, No erythema, No rash. Back: No tenderness, No CVA tenderness. Extremities: Intact distal pulses, No edema, No tenderness, No cyanosis, No clubbing. Musculoskeletal: Grossly normal strength in extremities Neurologic: Alert & oriented x 3, no gross focal neurological deficits Psychiatric: Affect normal, Judgment normal, Mood normal. EKG results: No results found for this or any previous visit (from the past 4464 hour(s)). Echo results: No echocardiogram results found for the past 12 months Radiology: MR cardiac morphology and function w and wo IV contrast Narrative: [facility] Department of Radiology [address] [place] [address] Patient Name: OXANA ARGUETA : 1985 Sex: F Age: Race: White^White Pt. Location: 30 Patient Status: D Ordered Date: 04/27/2019 4:10:00 PM Completed Date: 05/25/2019 12:32 PM Requesting Provider: JOCELYNN MENDEZ Attending Provider: JOCELYNN MENDEZ Report Copy To: JACOB FORMAN Signs & Symptoms: Z86.711 Personal history of pulmonary embolism I10 History: [place], No FB per patient. ashu auth # [id number] 05/03/19-06/02/19 [id number] *er Comments: , , , Ordering Provider - JOCELYNN MENDEZ MD , Exam: MRI CARDIAC WITH AND WITHOUT CONTRAST MRI CARDIAC WITH AND WITHOUT CONTRAST 05/25/2019 12:32 PM EDT SIGN AND SYMPTOMS: Z86.711 Personal history of pulmonary embolism I10 TECHNOLOGIST COMMENTS: patient complains of episodes of SOB and dizziness. dyspnea on exertion atrioventricular block, murmur, superventricular tachycardia QUESTIONS PER RADIOLOGIST: , , ====== (more content not included)... [facility] Evaluation note Note Date & Type Note Facility Evaluation note [facility] Phone: Summary Purpose Family History No Family History Records FoundNo Family History Records FoundNo Family History Records FoundNo Family History Records FoundNo Family History Records FoundNo Family History Records FoundNo Family History Records Found Advance Directives No Advanced Directives Records Found Advance Directive Response Recorded Date/ Time Advance Directives No January 22, 2 022 10:30am Chief Complaint and Reason for Visit Chief Complaint g93.2 Additional Source Comments INFORMATION SOURCE (unrecogn ized section and content) DATE CREATED AUTHOR 04/27/2018 [facility] DATE CREATED AUTHOR AUTHOR'S ORGANIZ ATION 08/14/2019 [facility] DATE CREATED AUTHOR AUTHOR'S ORGANIZ ATION 05/02/2021 [facility] DATE CREATED AUTHOR AUTHOR'S ORGANIZ ATION 02/06/2022 [facility] DATE CREATED AUTHOR AUTHOR'S ORGANIZ ATION 06/14/2024 [facility] DATE CREATED AUTHOR AUTHOR'S ORGANIZ ATION 07/04/2024 [facility] DATE CREATED AUTHOR AUTHOR'S ORGANIZ ATION 08/06/2024 [facility] Care Teams (unrecognized sec tion and content) Team Status: Inactive Member Role Status Dates Aamir Howe DO Attending Provider Active Kai Chavez MD Primary Care Provider Active Team Status: Active Member Role Status Dates Kai Chavez MD Primary Care Provider Active Goals (unrecognized section and content) Goals may be documented in a n alternate section FOR RECORDS PERTAINING TO PATIENTS WHO ARE OR HAVE BEEN ENROLLED IN A CHEMICAL DEPENDENCY/SUBSTANCEABUSE PROGRAM, SOME INFORMATION MAY BE OMITTED. This clinical summary was aggregated from multiple sources. Caution should be exercised in using it in the provision of clinical care. This summary normalizes information from multiple sources, and as a consequence, information in this document may materially change the coding, format and clinical context of patient data. In addition, data may be omitted in some cases. CLINICAL DECISIONS SHOULD BE BASED ON THE PRIMARY CLINICAL RECORDS. [facility] [employer] [facility] provides no warranty or guarantee of the accuracy or completeness of information in this document.
--- NOTE | 2024-08-10 10:36 | PC.NURSE ---
Nursing Note Cardiac Stress Test Reviewed: Medication, allergies and patient history reviewed. Stress Test: [ x] Patient tolerated stress test well. [ ] Patient unable to tolerate walking on treadmill. Switched to Lexiscan stress test. [ ] No chest pain noted per patient [ ] Chest pain that resolved prior to leaving stress lab. [ ] No dyspnea noted. [ x] Dyspnea that resolved prior to leaving stress lab. [ x] Patient left stress lab asymptomatic and hemodynamically stable. [ ] Patient taken to the Emergency Room due to non-resolving symptoms following stress test. [ x] Patient achieved target heart rate. [ ] Patient unable to achieve target heart rate. [ ] Aminophylline administered as reversal agent to Lexiscan (Regadenoson). [ ] Nitro administered. Nursing Comments: Patient met target heart rate quickly and was encouraged to continue on the treadmill per her tolerance. Patient became short of breath and was unable to continue. Patient returned to her baseline prior to leaving the stress lab.
== END 2024-08-10 09:10 | disposition home or self-care (01) ==
LOC: CARD 09:10
PROVIDERS: PCP Family Medicine; Visit Provider Internal Medicine Cardiovascular Disease
DX: R07.89 Other chest pain (principal)
CPT/HCPCS: 93017